=== PATIENT | female | born 1995 | race African-American/Black ===

== ENCOUNTER 2018-11-19 14:27 | Emergency (ER) | payer BC ==
[~2018-11-19] VITALS: Ht 170.2 cm; Wt 86.2 kg
--- NOTE | 2018-11-19 14:40 | NUR ---
PATIENT MSE BY DR BARRIGA IN ROOM 02A.
[2018-11-19] MEDS ORDERED: TDAP DIPH,PERTUSS,TET VAC/PF 0.5 ML DISP.SYRIN IM ONE (15:04)
[2018-11-19] MEDS: TDAP DIPH,PERTUSS,TET VAC/PF 0.5 ML DISP.SYRIN IM ONE (15:07)
--- NOTE | 2018-11-19 15:45 | NUR ---
DR DARLING EVALUATED THE PT. PT WAS D/C'd TO HOME. D/C INSTRUCTIONS GIVEN TO THE PT.
[2018-11-19 15:46] VITALS: BP 135/79
== END 2018-11-19 15:46 | disposition home or self-care (01) ==
LOC: ER 14:27
DX: S80.212A Abrasion, left knee, initial encounter (principal); W05.1XXA Fall from non-moving nonmotorized scooter, initial encounter; Y93.89 Activity, other specified; Y92.89 Other specified places as the place of occurrence of the external cause; Y99.8 Other external cause status
CPT/HCPCS: 90715; A4663